=== PATIENT | male | born 1960 | race Caucasian/White ===

== ENCOUNTER → 2023-10-16 14:22 | Outpatient (REF) | payer BC, SELFPAY | LOC: RCS 14:22 | PROVIDERS: ATTENDING PHYSICIAN Family Medicine | DX: R07.89 Other chest pain (principal) | CPT/HCPCS: 93017; 93350 ==

== ENCOUNTER → 2023-10-23 06:20 | Day surgery (SDC) | payer BC, SELFPAY | LOC: GI 06:20 | PROVIDERS: ATTENDING PHYSICIAN Specialist | DX: Z12.11 Encounter for screening for malignant neoplasm of colon (principal); D12.2 Benign neoplasm of ascending colon; K57.30 Diverticulosis of large intestine without perforation or abscess without bleeding; K64.8 Other hemorrhoids; Z86.010 Personal history of colon polyps | CPT/HCPCS: 45385; 88305 ==

== ENCOUNTER 2024-01-12 12:58 | Emergency (ER) | payer BC, SELFPAY ==
[2024-01-12 13:05] VITALS: BP 151/83
--- NOTE | 2024-01-12 14:05 | ED.GENMED ---
History of Present Illness
General
Chief Complaint: Musculo-Skeletal Complaint
Source: patient
Exam Limitations: none
Time Seen by Provider: 01/12/24 13:41
Nursing documentation reviewed up to this point in time: agreed with
Travel History
Have you had any contact with someone who has COVID-19?: No
Do you have any symptoms of coronavirus? Fever > 100 degrees, chills, cough, shortness of breath, sore throat, loss of taste or smell, muscle aches, or headache?: No
History of Present Illness
History of Present Illness:
63 y/o M with h/o depresion
here with lower back pain after lifitng about 50 pound item yesterday 9 am
felt pop in his lower back
pain is ok if he is stil, but if he moves he gets a pain in his lumbra back that doesn't radiate
no numbness/tingling/weakness in the legs
no fever/chills, incontinence
has not had chronic back pain
tried a dose of motrin 400 mg and another otc salicylate medication this morning 10 am with minimal relief
no h/o disc herniations..
Past History
Past History
ED Past Medical History: None
ED Past Surgical History: Orthopedic (Arthroscopic right knee surgery) and Other (Right parotid removal partial)
Social History
Tobacco: Non-smoker
Alcohol: None
Drug: None
Living: with family
Review of Systems
Review of Systems
Allergies reviewed?: Yes
All Other Systems: Not applicable
Phy Exam
Physical Exam
Physical Exam:
GENERAL: Alert , in no apparent distress, comfortable at rest
HEAD: NCAT
NECK: no midline tenderness, active ROM intact, no paraspinal muscle tenderness;
CARDIAC: Regular rate and rhythm, no edema
LUNGS: Clear breath sounds bilaterally, no acute respiratory distress, no wheezes/rales/rhonchi
ABDOMEN: Soft, without focal tenderness, no r/g, no cvat, normal bowel sounds, nondistended
NEUROLOGICAL: Alert and oriented, no focal neuro deficits, CN intact, 5/5 strength, sensation intact, able to walk, slightly with limp/slowly
SKIN: Warm and dry, no redness
MUSCULOSKELETAL: No edema, well perfused. Normal inspection of the hips
normal hip inspection, hip rotation and flexion intact
Back: No midline tenderness,no signficnat spasm no swelling
negative straight leg raise Bilaterally
pain is worse with flexion/movment
PSYCH: Normal and appropriate interaction.
Course
Orders/Labs/Results
Orders:
Orders
01/12/24 13:05
Lumbar Spine Complete, 4 View [CR Lumbar Spine Comp Min 4 Vw*] Urgent
Comment:
Reason For Exam: pain after lifting yesterday
01/12/24 14:22
Acetaminophen [Tylenol] 1,000 mg PO NOW STA
Diazepam [Valium] 5 mg PO NOW STA
Ketorolac [Toradol] 30 mg IM NOW STA
Vital Signs
Initial and Last Documented VS:
Initial Vital Signs
Temp Pulse Resp BP Pulse Ox
98.0 F 70 17 151/83 98
01/12/24 13:05 01/12/24 13:05 01/12/24 13:05 01/12/24 13:05 01/12/24 13:05
Last Documented Vital Signs
Temp Pulse Resp BP Pulse Ox
98.0 F 60 18 127/89 98
01/12/24 13:05 01/12/24 15:56 01/12/24 15:56 01/12/24 15:56 01/12/24 15:56
MDM/Problems Addressed
Differential Diagnosis Includes:
disc herniation, lumbar muscle spasm
MDM/Problems Addressed:
63 y/o M without chronic back pain
here with low back pain nonradiating after lifting yesterday
pain is worse with change in position
feels tight
no radition, weaknes, numbness, tingling, incontinence, fever
took small dose NSAID witot relief
on exam pain is c/w lumbar strain with spasm
less likely with herniation ,neg straight leg raise, no radiation of pain
xrays screening indep reviewed by me, mild DDD
nsaids, tylenol, valium, lidocaine
return precutions.
*Critical Care Note
Total Time (30-74mins, 75-104mins- exclusive of procedures): Not Applicable
ED Attending Note
-
Portions of this chart may have been created with voice recognition software.� Occasional wrong word or��sound alike� substitutions may have occurred due to the inherent limitations of voice recognition software.
Discharge Plan
Departure
Patient Disposition: Home (Routine Discharge)
Date of Disposition: 01/12/24
Time of Disposition: 15:18
Patient with high blood pressure during this ER visit?: Yes
Condition: Fair
Covid-19: Not Applicable
Discharge Problem:
DDD (degenerative disc disease), lumbar
Instructions: Degenerative Disc Disease (DC), BLOOD PRESSURE
Prescriptions:
New
diazepam [Valium] 5 mg tablet
5 mg PO TID PRN (Reason: muscle spasm) Qty: 12 0RF
ibuprofen 800 mg tablet
800 mg PO Q8H PRN (Reason: Pain) Qty: 20 0RF
No Action
sertraline 50 MG tablet
50 mg PO DAILY
mupirocin 1 GRAM ointment
1 g intranasal BID
Patient Comments:
started treatment on saturday08/17/19 and was taking BID. last took 08/20/19 at 0500
aspirin 325 MG tablet
325 mg PO DAILY Qty: 30 0RF
celecoxib 200 MG capsule
200 mg PO DAILY Qty: 30 0RF
oxycodone 5 MG tablet
5 mg PO Q4HPRN PRN (Reason: pain) Qty: 60 0RF
sennosides [Senokot Extra Strength] 17.2 MG tablet
17.2 mg PO DAILY Qty: 30 0RF
docusate sodium [Colace] 100 MG capsule
100 mg PO BID Qty: 60 0RF
acetaminophen [Tylenol] 325 MG capsule
650 mg PO QID Qty: 60 0RF
Referrals:
Peyton Castorena MD [Family Provider] - Follow up in 2-3 days
Stand Alone Forms: Return to Work
Activity Restrictions/Additional Instructions:
YOU HAVE SOME MILD DENERATIVE CHANGES IN YOUR LUMBAR SPINE THAT COULD PREDISPOSE FOR INJURIES WITH LIFTING
YOU HAD NO SIGNS OF ANY SPINAL CORD EMERGENCY TODAY BUT YOU SHOULD WATCH YOUR SYMPTOMS CLOSELY - RETURN FOR: FEVER, INCONITENCE, NUMBNESS/TINGLING/WEAKNESS IN THE LEGS OR ANY CONCERNS.
OTHERWISE TRY MOTRIN 800 MG 3 TIMES A DAY FOR 3-5 DAYS WITH FOOD FOR INFLAMMATION
TAKE TYLENO 1000 MG 3 TIMES A DAY FOR PAIN WELL
ICE OR HEAT ON YOUR BACK
FOR MUSCLE SPASM, TRY VALIUM 5 MG 1 TAB 2-3 TIMES A DAY NEEDED, THIS IS GOING TO MAKE YOU A LITTLE DROWSY, NO DRINKING OR DRIVING WITH THIS MEDICATION
FOLLOW UP WITH YOUR DOCTOR IF YOUR PAIN IS NOT IMPROVED
Interventions
Interventions:
*Risk Screen - Suicide Last Done: 01/12/24 14:41
*General Assessment Last Done: 01/12/24 14:41
*Neglect/Abuse Screening Last Done: 01/12/24 14:41
ED- Fall Risk Assessment Last Done: 01/12/24 15:57
*ED COVID-19 Vaccine History Last Done: 01/12/24 14:41
*Nursing Disposition Last Done: 01/12/24 16:40
ED-Musculoskeletal Assessment Last Done: 01/12/24 15:57
Discharge Date and Time
Discharge Date/Time: 01/12/24 16:40
Print Language: SAMI
[2024-01-12] MEDS: VALIUM 5 MG PO (14:37)
[2024-01-12] MEDS: TYLENOL 1000 MG PO (14:37)
[2024-01-12] MEDS: TORADOL 30 MG IM (14:37)
[2024-01-12 15:56] VITALS: BP 127/89
== END 2024-01-12 16:40 | disposition home or self-care (01) ==
LOC: EMR 12:58
PROVIDERS: EMERGENCY PHYSICIAN Emergency Medicine; FAMILY PHYSICIAN Family Medicine
DX: M51.36 Other intervertebral disc degeneration, lumbar region (principal); M54.50 Low back pain, unspecified; X58.XXXA Exposure to other specified factors, initial encounter; R03.0 Elevated blood-pressure reading, without diagnosis of hypertension
CPT/HCPCS: 99284; 96372; 72110

== ENCOUNTER → 2024-06-12 08:17 | Outpatient (REF) | payer BC, SELFPAY | LOC: HWRAD 08:17 | PROVIDERS: ATTENDING PHYSICIAN Family Medicine | DX: N50.89 Other specified disorders of the male genital organs (principal) | CPT/HCPCS: 76870; 93976 ==

== ENCOUNTER → 2024-07-03 17:30 | Outpatient (REF) | payer BC, SELFPAY | LOC: RAD 17:30 | PROVIDERS: ATTENDING PHYSICIAN Family Medicine; FAMILY PHYSICIAN Family Medicine | DX: M62.838 Other muscle spasm (principal) | CPT/HCPCS: 72072 ==